=== PATIENT | male | born 1955 | race Caucasian/White ===

== ENCOUNTER 2025-08-19 09:47 | Observation (INO) | payer MEDICARE ==
[~2025-08-19] VITALS: Ht 180.3 cm; Wt 102.0 kg
[~2025-08-19 09:47] MED LIST: ADULT LOW DOSE81 MG PO; AZITHROMYCIN250 MG PO; GLUCOPHAGE500 MG; LISINOPRIL10 MG; NORCO 5-325 TA1 EACH PO; NYQUIL D COLD295 ML PO; PEPCID20 MG PO; PROVENTIL HFA6.7 GM INH
[2025-08-19] MEDS ORDERED: LISINOPRIL20 MG PO (10:18)
[2025-08-19] MEDS ORDERED: FISH OIL CONCE1 EACH PO (10:19)
[2025-08-19] MEDS ORDERED: SILDENAFIL20 MG PO (10:19)
[2025-08-19] MEDS ORDERED: LIPITOR20 MG (10:19)
[2025-08-19] MEDS ORDERED: [UNRECOGNIZED DRUG - OTHER] PO (10:20)
[2025-08-19] MEDS ORDERED: VITAMIN E45 M1 PO (10:20)
[2025-08-19] MEDS ORDERED: VAZALORE81 MG PO (10:21)
[2025-08-19 10:22] LABS: BASOPHILS 0.4 % (0.2-1.2); EOSINOPHILS 0.4 % (0.8-7.0); LYMPHOCYTES 19.5 % (21.8-53.1); MCH 30.9 PG (25.7-32.2); MCHC 34.0 g/dL (32.3-36.5); MCV 90.8 fL (79.0-92.2); MONOCYTES 15.2 % (5.3-12.2); NEUTROPHILS 64.1 % (34.0-67.9); RBC 5.31 M/uL (4.63-6.08)
[2025-08-19] MEDS ORDERED: HYDROmorphone HCL 1 MG/ML SYR IV PRN (10:30)
[2025-08-19] MEDS ORDERED: SODIUM CHLORIDE 0.9% 1,000 ML IV ONE (10:30)
[2025-08-19 10:40] LABS: ALT (SGPT) 18.0 U/L (14-59); AST (SGOT) 10.0 U/L (15-37); GLOMERULAR FILTRATION RATE,EST 14.0 mL/min (>60); PROTEIN, TOTAL 8.1 g/dL (6.4-8.2); UREA NITROGEN 59.0 mg/dL (7-18)
[2025-08-19] MEDS ORDERED: SODIUM CHLORIDE 0.9% 1,000 ML IV PRN ×2 (11:45→14:00)
[2025-08-19] MEDS ORDERED: MIDAZOLAM HCL 2 MG/2 ML VIAL IV ONE (13:00)
[2025-08-19] MEDS ORDERED: FAMOTIDINE 20 MG/ 2 ML VIAL IV SCH ×2 (13:12)
[2025-08-19] MEDS ORDERED: LACTATED RINGER'S 1,000 ML IV SCH ×2 (13:15)
[2025-08-19] MEDS ORDERED: ALBUTEROL SULFATE 8 GM INH INH PRN ×2 (13:30)
[2025-08-19] MEDS ORDERED: IBLOOD GLUCOSE TEST STRIP 1 EA TEST XX SCH ×2 (14:00)
[2025-08-19] MEDS ORDERED: Insulin Regular, Human 100 UNIT/ML ML SUB-Q SCH ×2 (14:00)
[2025-08-19 14:34] VITALS: BP 116/64
[2025-08-19] MEDS ORDERED: ALBUTEROL SULFATE 0.083% 3 ML VIAL INH PRN ×2 (15:45)
--- NOTE | 2025-08-19 16:35 | NUR ---
PT RESTING IN BED WITH EYES CLOSED. RR EVEN AND UNLABORED. NG TUBE SECURELY IN PLACE. CALL LIGHT IS WITHIN REACH.
[2025-08-19 16:41] VITALS: BP 116/64
[2025-08-19 16:59] VITALS: BP 105/62
[2025-08-19 17:40] VITALS: BP 105/62
--- NOTE | 2025-08-19 18:17 | NUR ---
PT IS RESTING IN BED WITH EYES CLOSED. RR EVEN AND UNLABORED. LIFE PARTNER AND CPOX AT BEDSIDE. CALL LIGHT WITHIN REACH.
--- NOTE | 2025-08-19 19:24 | NUR ---
RECIEVED REPORT FROM CAPRICE DAVEY. PT LAYING IN BED WITH SIGNIFICANT OTHER AT BEDSIDE. NO NEEDS REPORTED AT THIS TIME, NG CONNECTED TO INTERMITTENT SUCTION PER ORDER, WHITEBOARD UPDATED, CALL LIGHT WITHIN REACH.
[2025-08-19 19:50] VITALS: BP 111/69
--- NOTE | 2025-08-19 20:00 | NUR ---
PT ASSISTED TO THE RESTROOM WITH LTM. BACK TO BED, UA SENT TO LAB, VS TAKEN. ASSESSMENT COMPLETED, NO OTHER NEEDS AT THIS TIME, CALL LIGHT WITHIN REACH. NO OTHER NEEDS AT THIS TIME, PTS BED LOWERED, CPOX ON, AND NG TO LOW CONTINUOUS SUCTION.
--- NOTE | 2025-08-19 20:03 | NUR ---
spoke to leyda in telepharmacy regarding pepcid. first dose was given approx 3pm, dose for tonight scheduled. per leyda, okay to give tonights dose.
[2025-08-19 20:19] LABS: BLOOD/HGB, URINE NEGATIVE (Negative); KETONE, URINE NEGATIVE (Negative); LEUK ESTERASE, URINE NEGATIVE (negative); NITRITE, URINE NEGATIVE (negative)
[2025-08-19 20:23] VITALS: BP 111/69
[2025-08-19 20:25] LABS: EPITHELIAL CELLS, URINE SQUAMOUS 1+ /lpf (0-1+)
[2025-08-19 20:26] LABS: BACTERIA, URINE RARE /hpf (negative); CASTS, URINE HYALINE 1+ \\lpf; CRYSTALS, URINE NONE SEEN (0-1+)
[2025-08-19 20:27] LABS: REFLEX CULTURE, URINE No (No)
--- NOTE | 2025-08-19 22:25 | NUR ---
PT PULLED OUT IV AND NG TUBE. MD AWARE AND REPORTS TO PLACE A NEW ONE. PT SKIN CLEANSED, CALL LIGHT WITHIN REACH, BED ALARM ON.
--- NOTE | 2025-08-19 23:10 | NUR ---
NG TUBE PLACED, XRAY AT BEDSIDE. PT TOLERATED WELL, AWAITING RESULTS. NEW IV PLACED IN PTS RIGHT ARM, TOLERATED WELL. IV FLUIDS RUNNING PER ORDER. NO OTHER NEEDS AT THIS TIME, CALL LIGHT WITHIN REACH, BED ALARM ON.
--- NOTE | 2025-08-19 23:26 | NUR ---
REQUESTED BY PRIMARY RN LEEANNE TO PLACE ORDER FOR STAT CHEST X-RAY PER PROTOCOL FOLLOWING PLACEMENT OF NG TUBE. ORDER PLACED AND IMAGING AWARE.
[2025-08-20] VITALS (12 sets, daily range): BP systolic 123–151; BP diastolic 54–76
--- NOTE | 2025-08-20 00:10 | NUR ---
NEW BAG OF FLUIDS HUNG, PT SLEEPING AT THIS TIME. CALL LIGHT WITHIN REACH, BED ALARM ON. NG TUBE HOOKED UP TO LOW CONTINUOS SUCTION PER ORDER DUE TO CONFIRMATION FROM XRAY. CPOX ON AT BEDSIDE.
--- NOTE | 2025-08-20 01:28 | NUR ---
PT LAYING IN BED EYES CLOSED, UNLABORED BREATHING. NO NEEDS AT THIS TIME, CALL LIGHT WITHIN REACH. NG CONNECTED TO LOW CONTINUOUS SUCTION, CPOX AT BEDSIDE, IV FLUIDS RUNNING PER ORDER.
--- NOTE | 2025-08-20 01:51 | NUR ---
CALL LIGHT ANSWERED. PT NEEEDED TO USE BATHROOM. RN DOCUMENT IMPROVEMENT SPECIALIST SBA TO BATHROOM. PT VOOIDED AND ASSISTED BACK TO BED. VITALS AND I&O OBTAINED. PT STATES NO FURTHER NEEDS AT THIS TIME. CALL LIGHT WITHIN REACH AND BED ALARM ON.
--- NOTE | 2025-08-20 03:39 | NUR ---
PT LAYING IN BED, EYES CLOSED, UNLABORED BREATHING. CPOX ON AT BEDSIDE, IV FLUIDS INFUSING PER ORDER, NG TUBE CONNECTED TO LOW CONTINUOUS SUCTION. CALL LIGHT WITHIN REACH.
--- NOTE | 2025-08-20 04:29 | NUR ---
PT LAYING IN BED, EYES CLOSED, UNLABORED BREATHING. NO NEEDS AT THIS TIME, CALL LIGHT WITHIN REACH.
--- NOTE | 2025-08-20 04:55 | NUR ---
CALL LIGHT ANSWERED. PT NEEDED TO USE BATHROOM. COMPUTING TUTOR SBA TO BATHROOM. COMPUTING TUTOR NOTED INCONT VOID AND CHANGED PT DRAW SHEET AND CHUCKS PAD. PT STATED THAT HE WASNT WET AND ASSISTED BACK TO BED. VITALS AND I&O OBTAINED. PT STATES NO FURTHER NEEDS AT THIS TIME. CALL LIGHT WITHIN REACH AND BED ALARM ON.
[2025-08-20 05:44] LABS: GLOMERULAR FILTRATION RATE,EST 27.0 mL/min (>60); UREA NITROGEN 53.0 mg/dL (7-18)
--- NOTE | 2025-08-20 06:05 | NUR ---
PTS ABDOMEN ASSESSED. NO NEEDS REPORTED AT THIS TIME, CALL LIGHT WITHIN REACH, BED ALARM ON, IV FLUIDS RUNNING PER ORDER, NG TUBE CONNECTED TO LOW CONTINUOUS SUCTION PER ORDER.
--- NOTE | 2025-08-20 06:48 | NUR ---
UR CLINICAL REVIEW: 2MN VERSAELIS, MEETS OBS FOR SMALL BOWEL OBSTRUCTION NG TUBE, NPO, IV FLUIDS, IV ANALGESICS. DOES MEET INPT CRITERIA, WILL NOTIFY PHYSICIAN TODAY. MEDICARE OBS 08/19/2025 @ 1300 ORDER MATCHES REG NO AUTH REQUIRED PER MEDICARE RULES PLAN TO DC TO HOME WHEN MEDICALLY READY 08/21/2025
--- NOTE | 2025-08-20 07:02 | NUR ---
RECIEVED REPORT FROM CAPRICE DYER. PT IS RESTING IN BED WITH EYES CLOSED, RR EVEN AND UNLABORED. CALL LIGHT IS WIHTIN REACH.
[2025-08-20] MEDS ORDERED: FLU (Fluad) 2025-26 (65UP)/MF59C/PF 45 MCG/0.5 ML IM ONE ×2 (09:00)
--- NOTE | 2025-08-20 09:24 | NUR ---
PATIENT IN BED AT THIS TIME. THIS CAPITAL EQUIPMENT SPECIALIST AND CAPITAL EQUIPMENT SPECIALIST SHARRI ASSISTED PATIENT TO BATHROOM AND THEN BACK TO BED. CALL LIGHT WITHIN REACH, NO FURTHER NEEDS AT THIS TIME.
--- NOTE | 2025-08-20 09:36 | NUR ---
INTO SEE PATIENT. PERSONAL HEALTH INFORMATION OBTAINED. PATIENT LIVES AT HOME WITH . NO STEPS INTO THE HOME. NO DME AT HOME. PATIENT NUMBER IS [phone] ([id number]). HE SEES JENNIFER CORDOBA FOR A PCP. DENIES ANY DIFFCULTY PAYING UTILITIES OR OBTAINING FOOD. WILL PICK HIM UP WHEN MEDICALLY CLEARED FOR D/C. NO FUTHER CM NEEDS AT THIS TIME.
--- NOTE | 2025-08-20 09:55 | NUR ---
PATIENT IS LYING IN BED. PATIENT WITH TWO VISITORS IN THE ROOM AT THIS TIME. SHANTE HARRELL AT BEDSIDE GETTING VITAL SIGNS. PATIENT SAYS "GOD DAMNIT I WANT OUT OF HERE". PATIENT THEN ASKS WHEN THE DR IS GOING TO BE HERE. THIS RN RESPORTS BEING UNSURE ON THE TIME WHEN WILL ROUND. CALL LIGHT AND PERSONAL BELONGINGS REMAIN IN REACH.
--- NOTE | 2025-08-20 10:49 | NUR ---
PLACED CALL TO DR. MCMILLAN ABOUT PT WANTING TO GO HOME. STATED SHE IS ON HER WAY. CALL ENDED.
--- NOTE | 2025-08-20 11:09 | NUR ---
SAHNTE HARRELL ASSISTED PT NURSE WITH CHECKING PT BS. SHANTE HARRELL UPDATED PT WHITE BOARD, PROVIDED AM AND ORAL CARE, PT WAS NOT INTERESTED IN A SHOWER AT THIS TIME. CALL LIGHT LEFT WITHIN REACH, NO FURTHER NEEDS.
--- NOTE | 2025-08-20 11:17 | NUR ---
VORB from Dr. Sinhg. Pt is now clamped per Dr. Singh's report. Nurse to check NG residual in four hours. If residual less than 100ml at that time, remove NG. Patient NPO status, may allow only small amounts of ice chips. Will relay new orders to prmary RN.
--- NOTE | 2025-08-20 11:39 | NUR ---
PT RESTING IN BED VISITING WITH WHO IS AT BEDSIDE. CPOX AT BEDSIDE, CALL LIGHT AND PERSONAL BELONGINGS ARE WITHIN REACH.
--- NOTE | 2025-08-20 12:34 | NUR ---
PT RESTING IN BED WITH EYES OPEN, WATCHING TV. LUNCH TRAY AT BEDSIDE, CALL LIGHT WITHIN REACH.
--- NOTE | 2025-08-20 12:36 | NUR ---
PT RESTING IN BED WITH EYES OPEN. IS AT BEDSIDE. RR EVEN AND UNLABORED. CALL LIGHT IS WITHIN REACH.
--- NOTE | 2025-08-20 13:12 | EKG ---
[facility] [address] [place], [place] [address] Signed Sinus tachycardia with premature atrial complexes Inferior infarct , age undetermined Possible Anterior infarct , age undetermined Abnormal ECG No previous ECGs available Confirmed by Pato Zaragoza DO ([id number]) on 08/20/2025 1:12:22 PM Electronically Signed By: PATO ZARAGOZA DO 08/20/25 1312 PATIENT NAME: TIARAANABEL RACHELLE Electrocardiogram DATE OF : 53 PHYSICIAN: PATO ZARAGOZA DO REPORT #: [id number] REPORT IS CONFIDENTIAL AND NOT TO BE RELEASED WITHOUT AUTHORIZATION
--- NOTE | 2025-08-20 13:45 | NUR ---
PT RESTING IN BED WITH EYES CLOSED. RR EVEN AND UNLABORED. CALL LIGHT AND PERSONAL BELONGINGS ARE WITHIN REACH.
--- NOTE | 2025-08-20 13:48 | NUR ---
PT RESTING IN BED WITH EYES CLOSED. RR EVEN AND UNLABORED. CPOX AT BEDSIDE, NG TUBE REMAINS ON LOW CONTINUOUS SUCTION PER DR. Singh. CALL LIGHT AND PERSONAL BELONGINGS ARE WITHIN REACH. BED ALARM IS ON.
--- NOTE | 2025-08-20 15:24 | NUR ---
NG RESIDUALS CHECKED; PT HAD GREATER THAN [address] MCMILLAN CALLED AND UPDATED. STATED TO CHECK RESIDUAL AGAIN IN 4 HOURS, AND "IF THE AMOUNT IS CLOSER TO 100 ML'S, PULL THE TUBE." NO FURTHER ORDERS AT THIS TIME. PHONE CALL ENDED. NG TUBE TO REMAIN OFF SUCTION.
[2025-08-20] MEDS ORDERED: VITAMIN D3125 MC2 PO (16:38)
--- NOTE | 2025-08-20 16:39 | NUR ---
MED REC COMPLETE
--- NOTE | 2025-08-20 16:49 | NUR ---
PT RESTING IN BED WITH EYES CLOSED, RR EVEN AND UNLABORED. IS AT BEDSIDE. CALL LIGHT AND PERSONAL BELONGINGS ARE WITHIN REACH.
--- NOTE | 2025-08-20 17:21 | NUR ---
PT RESTING IN BED PLAYING GAME. AT BEDSIDE. CALL LIGHT AND PERSONAL BELONGINGS ARE WITHIN REACH.
--- NOTE | 2025-08-20 23:55 | NUR ---
RESTING, EYES CLOSED, NO S/SX DISTRESS. IVF INFUSING W/O PROBLEMS, BED ALRMS IN PLACE. PT STILL NPO EXCEPT ICE CHIPS
--- NOTE | 2025-08-21 01:18 | NUR ---
pt used call light, Up to BRP, voided large amounts clear yellow urine and had a large semiliquid bm. Did own care, Back to bed. tolerated well, Repositioned in bed. On room air, IVF infusing w/o problems R hand
--- NOTE | 2025-08-21 02:38 | NUR ---
RESTING, EYES CLOSED, NO C/O PAIN NPO. CBG 88, NO COVERAGE NEEDED
--- NOTE | 2025-08-21 04:33 | NUR ---
Resting, eyes closed, no s/sx distress, on room air, CPOx at bedside sats WNL, IVF infusing w/o problems
[2025-08-21 05:33] VITALS: BP 122/72
--- NOTE | 2025-08-21 05:55 | NUR ---
RESTING, EYES CLOSED, ON ROOM AIR, IVF INFUSING, TOLERATING ICE CHIPS WELL, NO C/O N/V, VOIDING QS 1PA.
--- NOTE | 2025-08-21 06:51 | NUR ---
REPORT RECEIVED FROM TELEVISION PICTURE TUBE REBUILDER RN ONEAL. PATIENT IS LYING IN BED ON HIS RIGHT SIDE WITH EYES CLOSED AND RESPIRATIONS ARE EVEN AND UNLABORED. CALL LIGHT AND PERSONAL BELONGINGS ARE WITHIN REACH.
--- NOTE | 2025-08-21 07:40 | NUR ---
SHANTE CANDELARIA IS IN THE ROOM AT THIS TIME AND ASSISTING PATIENT TO THE BATHROOM.
--- NOTE | 2025-08-21 08:04 | NUR ---
ANSWERED PATIENT CALL LIGHT AT 0745 . UPON ENTERING ROOM PATIENT WAS LYING IN BED. PATIENT STATED THAT HE HAD MADE AN INVOLUNTARY BOWEL MOVEMENT. I CALLED FOR ASSISTANCE FROM SHANTE HARRELL. I GOT PATIENT STOOD UP AND TOOK HIM TO THE BATHROOM WHERE HE SAT ON THE TOILET. I GOT HIM OUT OF HIS DIRTY CLOTHES AND PLACED THEM INTO A LINEN BAG. I HELPED THE PATIENT WITH BATH WIPES TO GET CLEAN AGAIN. PATIENT WAS DIRTY FROM HIS BUTTOM ALL THE WAY TO HIS FEET. ONCE THE PATIENT WAS CLEAN I GOT HIM INTO NEW GOWN, BRIEF, AND SOCKS. DURING THIS TIME SHANTE HARRELL GOT THE BED LINENS CHANGED AND PLACED A DEENA. PATIENT WAS PLACED BACK INTO BED WITH FRESH LINENS. I FINISHED WIPING OFF THE TOILET AND FLOOR AND DISPOSED OF DIRTY WIPES. PATIENT HAD NO FURTHER NEEDS UPON LEAVING ROOM.
[2025-08-21 08:55] VITALS: BP 151/71
[2025-08-21 08:57] VITALS: BP 151/71
--- NOTE | 2025-08-21 09:00 | NUR ---
0900 MEDICATIONS ADMINISTERED PER THE EMAR. VITAL SIGNS TAKEN AND DOCUMENTED IN THE CHART. FULL LIQUID DIET TRAY PROVIDED AND SET UP IN FRONT OF THE PATIENT. PATIENT EDUCATED ON TAKING FOOD SLOWLY. PATIENT WITH NO COMPLAINTS OF NAUSEA. PATIENT STATED NO FURTHER NEEDS AT THIS TIME. CALL LIGHT AND PERSONAL BELONGINGS ARE WITHIN REACH.
--- NOTE | 2025-08-21 10:10 | NUR ---
PATIENT IS AMBULATING IN THE HALLWAY WITH HIS AT THIS TIME.
--- NOTE | 2025-08-21 11:01 | NUR ---
PATIENT IS LYING IN BED WITH HOB ELEVATED. PATIENT WITH EYES OPEN AND RESPIRATIONS ARE EVEN AND UNLABORED. PATIENT IS LOOKING ON HIS IPAD. PATIENT IS SITTING IN THE RECLINER AT BEDSIDE. CALL LIGHT AND PERSONAL BELONGINGS ARE WITHIN REACH.
--- NOTE | 2025-08-21 11:51 | NUR ---
CBG 129
--- NOTE | 2025-08-21 12:29 | NUR ---
PATIENT IS SITTING IN THE BATHROOM AT THIS TIME WITH IV PUMP WITHIN REACH. SHANTE HARRELL IS IN THE ROOM
--- NOTE | 2025-08-21 13:32 | NUR ---
CALL LIGHT ANSWERED WANTING TO HAVE IV DC'D. ORDERS REVIEWED, NO ORDER FOR DISCHARGE OR DC'ING IV OR IV FLUIDE. PT BECAME AGITATED AND VERBALLY ABUSIVE, USING FOUL LANGUAGE, STATING "WE WERE WASTING HIS "FUCKING" TIME. PT INSTRUCTED HE WAS BEING ABUSIVE AND REQUESTED TO STOP CUSSING AND THREATENING TO PULL OUT HIS IV. PT INSTRUCTED WOULD DISCUSS WITH MD AND PRIMARY RN REGARDING DC VS AMA. PT REMAINS SITTING CHAIR, CALL SCOTT IN REACH, LR INFUSING TO L HAND @ 125ML/HR.
--- NOTE | 2025-08-21 13:45 | NUR ---
PATIENT IS SITTING ON THE COUCH AND GETTING DRESSED. PATIENT STATES "I WANT TO GET THE HELL OUT OF HERE AND GET THIS THING OUT". THIS RN CALLED . STATED SHE WOULD COME BACK AT THREE AND THEN ADVISED TO NOT MAKE FURTHER CALLS UNLESS THE PATIENT STATE WAS DECLINING OR CODING. NO NEW ORDERS AT THIS TIME. CALL ENDED.
--- NOTE | 2025-08-21 14:02 | NUR ---
Notified by Radha Mccrary that this pt called the nurses' station stating that he "wanted this thing out of my ass and I'm leaving". As his primary RN and I were walking to his room to see what he was referring to, we noted the patient was ambulating towards CCU with his personal belongings. CAPRICE Aguila hurried to steer the pt back towards his room but the pt seemed angry and was adamant that he was leaving. He stated loudly that he will not be going back into "that room". Pt began walking towards the front of the hospital. I reviewed risks with him as we walked and advised him to be seen by healthcare if he experiences any s/sx of infection or worsening symptoms. He verbalized understanding and stated he will sign an AMA form. Reviewed form with pt and he signed, this RN witnessed the signature, and a copy was given to the pt. Dr. Ontiveros arrived on the floor 10 minutes or so after he left and was updated on the situation. The pt had removed his IV and I visualized it with catheter intact, laying on the bed.
--- NOTE | 2025-08-21 14:22 | NUR ---
ARRIVED TO THE FLOOR AND ASKED IF THE PATIENT LEFT. THIS RN SAID YES. MD ASKED REGARDING ORAL INTAKE, WALKING, AND NAUSEA. THIS RN ANSWERED QUESTIONS.
== END 2025-08-21 14:10 | disposition left against medical advice (07) ==
LOC: ED 09:47 → MS 09:49
PROVIDERS: Emergency Medicine; ADMIT Surgery; ATTEND Surgery
DX: K56.609 Unspecified intestinal obstruction, unspecified as to partial versus complete obstruction (principal); N17.9 Acute kidney failure, unspecified; E86.0 Dehydration; J44.9 Chronic obstructive pulmonary disease, unspecified; E11.9 Type 2 diabetes mellitus without complications; I10 Essential (primary) hypertension; F17.200 Nicotine dependence, unspecified, uncomplicated; Z88.2 Allergy status to sulfonamides; Z79.84 Long term (current) use of oral hypoglycemic drugs; Z79.82 Long term (current) use of aspirin; Z79.899 Other long term (current) drug therapy
CPT/HCPCS: 36415; 71045; 74176; 80048; 80053; 81001; 83690; 85025; 93005; 93010; 94762; 94799; 96361; 96374; 96375; 96376; 99285-25; G0378; J1171; J1815; J2250; J2405; J7030; J7121

== ENCOUNTER 2025-08-21 18:51 | Inpatient (IN) | payer MEDICARE, OTHER ==
[~2025-08-21] VITALS: Ht 180.3 cm; Wt 102.0 kg
[~2025-08-21 18:51] MED LIST changes: +FISH OIL CONCE1 EACH PO; +LIPITOR20 MG; +LISINOPRIL20 MG PO; +SILDENAFIL20 MG PO; +VAZALORE81 MG PO; +VITAMIN D3125 MC2 PO; +VITAMIN E45 M1 PO; +[UNRECOGNIZED DRUG - OTHER] PO
--- OUTSIDE RECORDS SUMMARY | 2025-08-21 18:58 | XMS ---
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 Rebeca has no Care Guidelines for this patient. [facility] VISIT COUNT (12 MO.) 2 [facility] TOTAL 2 NOTE: Visits indicate total known visits. ED/C VISIT TRACKING (12 MO.) 08/21/2025 18:51 [facility] [place] TYPE: Emergency COMPLAINT: - ABD PAIN 08/19/2025 09:48 [facility] [place] TYPE: Emergency COMPLAINT: - VOMITING INPATIENT VISIT TRACKING (12 MO.) 08/19/2025 09:49 [facility] [place] TYPE: Observation COMPLAINT: - SBO,DM,HTN,COPD [email or web address]
[2025-08-21] MEDS ORDERED: LACTATED RINGER'S 1,000 ML IV ONE (20:00)
[2025-08-21 20:09] LABS: BASOPHILS 0.3 % (0.2-1.2); EOSINOPHILS 1.9 % (0.8-7.0); LYMPHOCYTES 13.5 % (21.8-53.1); MCH 30.9 PG (25.7-32.2); MCHC 34.2 g/dL (32.3-36.5); MCV 90.3 fL (79.0-92.2); MONOCYTES 11.3 % (5.3-12.2); NEUTROPHILS 72.4 % (34.0-67.9); RBC 4.44 M/uL (4.63-6.08)
[2025-08-21 20:26] LABS: ALT (SGPT) 11.0 U/L (14-59); AST (SGOT) 17.0 U/L (15-37); GLOMERULAR FILTRATION RATE,EST 59.0 mL/min (>60); PROTEIN, TOTAL 6.6 g/dL (6.4-8.2); UREA NITROGEN 31.0 mg/dL (7-18)
[2025-08-21] MEDS ORDERED: MORPHINE SULFATE 4 MG/ML VIAL IV ONE (20:30)
[2025-08-21] MEDS ORDERED: MAGNESIUM SULFATE 2 GM/50 ML BAG IV ONE (20:30)
[2025-08-21] MEDS ORDERED: LACTATED RINGER'S 1,000 ML IV SCH ×2 (21:30)
[2025-08-21] MEDS ORDERED: FAMOTIDINE 20 MG/ 2 ML VIAL IV SCH ×2 (21:31)
[2025-08-21] MEDS ORDERED: ALBUTEROL SULFATE 8 GM INH INH PRN ×2 (21:45)
[2025-08-21 21:52] VITALS: BP 169/92
--- NOTE | 2025-08-21 22:14 | NUR ---
2144 - admitted to room 114 from ER via stretcher. SL LAC, Lnare NGT to LIWS, inmediate return of thick green colored drainage over 1000cc aspirated. On room air, Lungs clear bilat, abd distended, tender, chetna, R abd hernia very prominent. Pt anxious and restless, aware of NPO status. IVF started, Oriented to room and procedures. HOB elevated, reassured. Bed alarm in place. Pt alert and oriented.
[2025-08-21] MEDS ORDERED: ALBUTEROL SULFATE 0.083% 3 ML VIAL INH PRN ×2 (22:30)
[2025-08-21 22:31] VITALS: BP 169/92
[2025-08-21] MEDS ORDERED: LIDOCAINE 2% VISCOUS 6 ML SYR ONE (23:15)
--- NOTE | 2025-08-21 23:20 | NUR ---
Pt called for assistance-Upon entering room, found Pt had urinated in mini trash bag and gotten up and placed it in the sink near the door. Also discovered NG tube wadded up with gown on bedside table with Pt's nose dripping and bloody. Notified RN. Assisted RNs x3 to replace NG tube. Provided Pt a warm blanket. No other needs expressed by Pt. Call light left in reach. Bed alarm on.
--- NOTE | 2025-08-21 23:22 | NUR ---
pt pulled ngt out. angry, irritable mood, "I just needed to get up and it was on the way". will try to restart
--- NOTE | 2025-08-21 23:39 | NUR ---
NGReema REINERTED Oscar ORELLANA AFTER SEVERAL TRIES. ALL CARES EXPLAINED TO PT. PT UPSET, ANGRY TONE OF VOICE, IRRITABLE, REDIRECTABLE. WILL ORDER CXR FOR PLACMENT. PT CALMER
--- NOTE | 2025-08-21 23:45 | NUR ---
Pt moved to room 110 from room 114 for closer visuals as pt pulled own NGT, alert and oriented to all but unknown if ETOH withdrawls, irritable mood, redirectable. CIWA assessment completed Pt semicooperative with all actions, all cares explained to pt. Have tried to reinsert NGT and will wait for CXR for placement.
[2025-08-22] VITALS (11 sets, daily range): BP systolic 123–148; BP diastolic 56–85
--- NOTE | 2025-08-22 00:20 | NUR ---
Cleaned Pt's nose and adjusted pillows. No other needs expressed by Pt. Call light in reach.Bed alarm set.
--- NOTE | 2025-08-22 00:33 | NUR ---
ngt had to be removed as per CXR tube was coiled wrong. Replaced with 18FR by Amilcar BHANDARI RN XR showed correct position, waiting for confirmation. NGT to LIWS, with inmediate suctioning of thick/brown/red green drainage. Pt was semicooperative during both NGT insertion, all cares explained prior to and reasoning. semireceptive.
--- NOTE | 2025-08-22 00:35 | NUR ---
NGT REINSERTED 18FR L NARE BY NIKA BHANDARI RN. PATENT,ALL CARES EXPLAINED, PT SEMICOOPERATIVE. TOLERATED FAIR. XR HERE TO CHECK PLACEMENT
[2025-08-22] MEDS ORDERED: Insulin Regular, Human 100 UNIT/ML ML SUB-Q SCH ×2 (02:00)
[2025-08-22] MEDS ORDERED: IBLOOD GLUCOSE TEST STRIP 1 EA TEST XX SCH ×2 (02:00)
--- NOTE | 2025-08-22 02:27 | NUR ---
AWAKE, WATCHINGT V, NGT R NARE TO LIWS PATENT DRAINING THICK DRAINAGE. PT DECLINES TO USE A GOWN. TUBING TAPED TO SKIN, HAS TOLERATED WELL, NO C/O N/V OR DRY HEAVING. ABD STILL DISTENDED SLIGHTLY SOFTER , R ABD HERNIA VERY ROTRUDING. USED URINAL. IVF INFUSING W/O PROBLEMS, BED ALRMS IN PLACE. REPOSITIONS SLEF IN BED CBG 151.
[2025-08-22 03:52] LABS: BLOOD/HGB, URINE TRACE-I (Negative); KETONE, URINE SMALL (Negative); LEUK ESTERASE, URINE NEGATIVE (negative); NITRITE, URINE NEGATIVE (negative)
[2025-08-22 04:10] LABS: BACTERIA, URINE 1+ /hpf (negative); CASTS, URINE NONE SEEN \\lpf; CRYSTALS, URINE NONE SEEN (0-1+); EPITHELIAL CELLS, URINE NONE SEEN /lpf (0-1+); REFLEX CULTURE, URINE No (No)
--- NOTE | 2025-08-22 06:35 | NUR ---
Awake, watching TV, on room air, no c/o pain, IVF infusing w/o problems. L Nare NGT to LIWS draining thick green colored drainage. totaol of 1800cc from admit to now. decreased abd distention noted. bowel tones present. R abd hernia very protruding. Has used urinal, voiding QS. Repositions slef in bed. HOB elevated to 30o. NPO, oral care done. Calmer, Cooperative and polite with words and actions. All cares explained to his satisfaction.
--- NOTE | 2025-08-22 07:25 | NUR ---
PT REPORT RECEIVED FROM CAPRICE NO. PT IS RESTING IN BED, BREATHING IS REGULAR, EVEN, AND NON-LABORED.
--- NOTE | 2025-08-22 08:55 | NUR ---
HOURLY ROUNDING PATIENT LAYING IN BED, DEMANDING SOMETHING TO DRINK. NO FURTHER REQUEST FROM PATIENT BOARD HAS BEEN UPDATED AND CALL LIGHT HAS BEEN PLACED WITHIN REACH
--- NOTE | 2025-08-22 09:00 | NUR ---
Dr. Sanon on the unit and checked in with this RN about this pt's status. I updated her on what I was told in morning report. Pt is resting in bed, TV on.
--- NOTE | 2025-08-22 09:13 | NUR ---
In with pt for morning med administration and assessment. Pt is resting supine with eyes closed, snoring quietly, television on. Pt awakens easily to voice. I noted that the NGT is connected to wall suction but it is off. I turned it on to low continuous wall suction per nurse notify order from Dr. Sanon. NGT clamped after 75ml dark green liquid suctioned into cannister, for a.m. oral med administration.
[2025-08-22] MEDS ORDERED: LORazepam 2 MG/ML VIAL IV SCH ×4 (09:31→14:00)
--- NOTE | 2025-08-22 09:35 | NUR ---
Administered PO med per emar. NGT clamped, pt took pill with sips of water.
[2025-08-22 09:39] LABS: INR 1.14 (0.80-1.30); PROTIME 13.8 Sec (11.2-14.2)
--- NOTE | 2025-08-22 10:10 | NUR ---
FAMILY TO NURSES STATION ASKED FOR ICE CHIPS. NGT CLAMPED FOR PO MEDICATION. EDUCATION PROVIDED. pt AND FAMILY VERBALIZE UNDERSTANDING. URINAL EMPTIED. MOUTH SWAB PROVIDED.
--- NOTE | 2025-08-22 10:50 | NUR ---
NGT BACK TO SUCTION PER ORDERS. pt SLEEPING, AWAKENS TO VOICE WHEN RN ENTERS ROOM.
--- NOTE | 2025-08-22 16:14 | NUR ---
Pt is up in chair, slouched down in the chair, BLE elevated, NGT to LCWS, putting out dark green liquid. Pt eyes are closed, breathing is regular, even, and non-labored, TV is on. Call light in reach
--- NOTE | 2025-08-22 17:54 | NUR ---
HOURLY ROUNDING PATIENT LAYING IN BED, APPEARS TO BE TIRED. NO REQUEST. FAMILY AT BEDSIDE. CALL LIGHT HAS BEENPLACED WITHIN REACH
--- NOTE | 2025-08-22 18:20 | NUR ---
Pt's son came to the nurse's station, questions answered. Pt is resting with eyes closed, breathing is regular, even, and non-labored. PC to Dr. Ontiveros and updated her on A.M. labs from this morning and the magnesium being 1.5. She advised she does not want to order any labs for the morning, but gave a verbal order to administer 2g magnesium IV now x1. Also advised that the pt is a daily smoker, obtained order for 21mg nicotine patch daily starting now.
[2025-08-22] MEDS ORDERED: NICOTINE 21 MG/24 HR 1 EA TDSY TD SCH ×2 (18:32)
--- NOTE | 2025-08-22 18:38 | NUR ---
Dr. Ontiveros on the floor to see this pt. Updated her on his condition throughout the shift. She advised that she has spoke with Dr. Tay about this patient. Dr. Tay will see him tomorrow.
[2025-08-22] MEDS ORDERED: MAGNESIUM SULFATE 1 GM/2 ML VIAL IV ONE ×2 (18:45)
[2025-08-22] MEDS ORDERED: LORazepam 2 MG/ML VIAL IV PRN ×2 (19:00)
[2025-08-22] MEDS ORDERED: MAGNESIUM SULFATE 2 GM/50 ML BAG IV ONE ×2 (21:00)
--- NOTE | 2025-08-22 21:01 | NUR ---
Pt drowsy, awakens easily, Cooperative with assessments and vitals. NGT to LIWS L nare patent, draining thick mucoid like brown-maroon and green colored drainage. On room air, lungs clear bilat, upper abd distended firm, and all abd tender, softer lower abd, R abd prominent hernia present. no bm today and denies passing gas. HOB elevated to 30o, no s/sx aspiration and pt repositions self inbed. Nicotine patch first dose applied to L chest, Mag IVPB started, med ed done with pt. stated "mmmm, ok". NPO oral care done. alert and oriented
--- NOTE | 2025-08-22 22:24 | NUR ---
resting, eyes closed, on room air, L NGT in place to DANICA, patent. IVF infusing w/o problems. Abd no chagnes, not passing gas. uses urinal, repositions self in bed
[2025-08-23] VITALS (9 sets, daily range): BP systolic 115–155; BP diastolic 53–80
--- NOTE | 2025-08-23 00:37 | NUR ---
Resting, eys closed, was awake a few minutes ago. was asking for water, reminded of NPO status. IVF infusing w/o problems. NGT to LIWS.
--- NOTE | 2025-08-23 02:57 | NUR ---
resting, awakens easily, coop with CG, 81, no coverage needed, ivf infusin, used urinal. no c/o pain. L nare NGT in place, draining thick dark drainage
--- NOTE | 2025-08-23 05:22 | NUR ---
on room air, HOB elevated to 30o, L nare NGT to LIWS inplace, draining thick brownish maroon colored drainge, IVF infusing LAC. Pt has used urinal, top bedding changed earlier as it got soiled with urine after pt used urinal, declined to have sweat pants removed. Repositions slef in bed, Has to be redirected several times as pt has tried to and placed legs outside bed, redirected and repositoned, calm and pleasnt with this RN. Eyes closed at this time. NPO, oral care done
--- NOTE | 2025-08-23 07:00 | NUR ---
Pt report received from CAPRICE Crocker. Pt is resting supine in bed, eyes closed, breathing is regular, even, and non-labored. Side rails up x4, call light in reach, white board updated. Room smells like stale urine. Pt awakens easily to quiet noise. NGT to LIWS. Pt denies pain, no nausea, no abdominal tenderness at this time.
--- NOTE | 2025-08-23 09:01 | NUR ---
HOURLY ROUNDING PATIENT LAYING IN BED, NO REQUEST AT THIS TIME. BOARD HAS BEEN UPDATED AND CALL LIGHT HAS BEEN PLACED WITHIN REACH.
--- NOTE | 2025-08-23 11:36 | NUR ---
In with pt to saline lock his IV and clamp the NGT so he can shower. Oly in with pt to set up his shower.
--- NOTE | 2025-08-23 12:47 | NUR ---
hourly rounding patient laying in bed after shower. no request from patient at this time call light has been placed within reach
--- NOTE | 2025-08-23 13:26 | NUR ---
ALERT AND ORIENTED IN BED. NG TUBE IN PLACE. DENIES CM NEEDS.
--- NOTE | 2025-08-23 14:46 | NUR ---
UR CLINICAL REVIEW: 2 MN FOR VERSALUS-PER BODY HANGER MEETS INPT FOR SBO WITH NEED FOR NG TUBE, IVF AND SERIAL LABS MEDICARE OBS TO INPT 08/23/25 @ 8098 REG UPDATED NO AUTH REQUIRED PER MEDICARE GUIDELINES DISCHARGE TO HOME WHEN STABLE ADD: 1-2 MORE DAYS
--- NOTE | 2025-08-23 15:43 | NUR ---
In with pt for 4hr post NGT clamp assessment. Pt is A&O, denies any pain, no n/v, would like to have the NGT removed. PC to Dr. Tay, confirmed okay to D/C NGT at this time and advance pt to clear diet now. NGT removed, pt tolerated well, pt also provided with a half of a cup of water full of ice and given a popscicle. Pt at bedside. Call light in reach.
--- NOTE | 2025-08-23 20:58 | NUR ---
PT IN BED, ROOM AIR, COOPERATIVE WITH VITALS AND ASSESSMENTS. LUNGS CLEAR BILAT, ABD STILL SLIGHT DISTENTION UPPER ABD, TENDER, DIDI, STATED PASSINGAS EARLIER. NO BM. R ABD HERNIA PRESENT AND PROTRUDING. INCONTIENNT OF URINE, USES URINAL TOO. BRUISING ARMS FROM PREVIOUS IVS HEALING. IVF IFUSING LAC 1PA/ ON CLEAR LIQUIDS AT THIS TIME, TOLERATING WELL, HAS HAD 4 CUPS OF ICE SINCE BEGINING OF SHIFT, PT INSTRUCTED TO SLOW DOWN ON ICE CHIPS INTAKE TO PREVENT ABD PROBLEMS OR N/V, STAED UNDERSTANDING, DENIES N/V AT THIS TIME. ON CLEAR LIQUIDS UNTIL ASSESSED IN AM BY . BED ALARM IN PLACE. CIWA 2. PT IS ALERT AND ORIENTED TO ALL BUT SEEMS TO HAVE OCASSIONAL TEMPORARY CONFUSION AND RESTLESSNES. REORIENTED WITH EACH IN TERACTION
--- NOTE | 2025-08-23 23:16 | NUR ---
awake, watchingt tv. no c/o pain, on room air, alarms inplace
--- NOTE | 2025-08-23 23:49 | NUR ---
Pt standing edge of bed, used urinal, voided qs yellow urine. Back to bed, instructed again to use call light, stased understanding. Bed alrm in place
[2025-08-24] VITALS (7 sets, daily range): BP systolic 113–137; BP diastolic 56–69
--- NOTE | 2025-08-24 01:30 | NUR ---
BED ALARMING. PATIENT GOT UP AND SIT IN THE CHAIR. THIS STAFF RESEARCH SCIENTIST GAVE THE CALL LIGHT AND ADVICED TO CALL WHEN EVER HE WANTS TO GET UP. NO FURTHER NEEDS AT THIS TIME.
--- NOTE | 2025-08-24 02:40 | NUR ---
PATIENT IS BACK IN BED NOW BY HIMSELF.
--- NOTE | 2025-08-24 04:41 | NUR ---
Pt was on nusrat chair, then placed self back to bed. used urinal. Instructed to please use call light, return demonstration done. statsed understanding. IVf infusing w/o problems. pt on room air, tolerating liquids well, no c/o n/v. stated he is passing gas. Back to bed. alarms in place
--- NOTE | 2025-08-24 05:29 | NUR ---
AWAKENS EASILY, ON ROOM AIR, IN BED, COOPERATIVE WITH VITALS. ABD SOFT, DIDI, DISTANT, STATED PASSING GAS. TENDER ABD. R ABD HERNIA NO CHANGES. VOIDING QS USES URINAL. ALERT AND ORIENTED. CALMER. REPOSITIONS SELF INBED. "I NEED TO TALK TO MY DOCTOR, I NEED TO HAVE A SURGERY TODAY". PT INSTRUCTED THAT THE DOCTOR WILL COME AND TALK TO HIM LATER IN AM AND ANSWER HIS QUESTIONS R/T WHETHER PT NEEDS SURGERY OR NOT". WENT BACK TO SLEEP
--- NOTE | 2025-08-24 05:54 | NUR ---
pt c/o feeling nauseated and r abd pain. on clear liquids, abd soft, tender, faint DIDI, stated passing gas, Medicated with Zofran IV. reassured. repositioned in bed
--- NOTE | 2025-08-24 07:10 | NUR ---
REPORT RECEIVED FROM CAPRICE NO. PT RESTING IN BED WITH AT BEDSIDE. PT HAS NO REQUESTS AT THIS TIME. STATES HE IS EAGER TO GO HOME. CALL LIGHT WITHIN REACH.
[2025-08-24] MEDS ORDERED: Insulin Regular, Human 100 UNIT/ML ML SUB-Q SCH ×2 (08:00)
[2025-08-24] MEDS ORDERED: IBLOOD GLUCOSE TEST STRIP 1 EA TEST XX SCH (08:00)
--- NOTE | 2025-08-24 08:44 | NUR ---
PT SITTING UP IN THE CHAIR, FINISHED HIS CL LIQ BREAKFAST. PT SATES NO PAIN OR ABD DISCOMFORT AT THIS TIME. IN ROOM. CALL LIGHT WITHIN REACH.
--- NOTE | 2025-08-24 10:04 | NUR ---
ALERT AND ORIENTED IN RECLINER. SPOUSE IN ROOM. DENIES CM NEEDS. WOULD LIKE TO DC TO HOME TODAY IF POSSIBLE.
--- NOTE | 2025-08-24 11:24 | NUR ---
NICODERM PATCH APPLIED TO L) ARM REQUESTED BY PT. (PT REFUSED IT EARLIER THIS MORNING) PT'S AND SON IN ROOM. PT HAS NO OTHER REQUESTS AT THIS TIME. CALL LIGHT WITHIN REACH.
--- NOTE | 2025-08-24 12:09 | NUR ---
PT SITTING UP IN HIS CHAIR EATING LUNCH, TOLERATING WELL. IN ROOM. CALL LIGHT WITHIN REACH.
--- NOTE | 2025-08-24 12:30 | NUR ---
DR RAJAN IN TO SEE PT AND DISCUSS POC.
--- NOTE | 2025-08-24 13:05 | NUR ---
HOURLY ROUNDING PATIENT APPEARS READY TO GO HOME HE SAYS. CALL LIGHT HAS BEEN PLACED WIOTHIN REACH
--- NOTE | 2025-08-24 13:08 | NUR ---
PT WAS ABLE TO EAT 100% OF HIS REGULAR LUNCH TRAY AND TOLERATED WELL. IN ROOM AND CALL LIGHT WITHIN REACH.
== END 2025-08-24 14:26 | disposition home or self-care (01) | DRG 389 ==
LOC: ED 18:51 → MS 18:52
PROVIDERS: Internal Medicine; ADMIT Surgery; ATTEND Surgery
DX: K56.600 Partial intestinal obstruction, unspecified as to cause (principal); K42.0 Umbilical hernia with obstruction, without gangrene; J44.9 Chronic obstructive pulmonary disease, unspecified; I10 Essential (primary) hypertension; E78.00 Pure hypercholesterolemia, unspecified; R73.03 Prediabetes; F10.20 Alcohol dependence, uncomplicated; F17.210 Nicotine dependence, cigarettes, uncomplicated; Z88.2 Allergy status to sulfonamides; Z79.82 Long term (current) use of aspirin; Z79.899 Other long term (current) drug therapy
CPT/HCPCS: 36415; 71045; 74018; 74176; 80053; 81001; 83690; 83735; 84484; 85025; 85610; 96361; 96365; 96366; 96374; 96375; 96376; 99285-25; G0378; J1815; J2060; J2270; J2405; J3475; J7121